=== PATIENT | female | born 1945 | race Caucasian/White ===

== ENCOUNTER 2017-07-05 09:45 | Outpatient (CLI) | payer MEDICARE, OTHER | END 2017-07-05 09:46 | disposition home or self-care (01) | LOC: LAB.F 09:45 | PROVIDERS: ATTEND Nurse Practitioner Family | DX: Z13.6 Encounter for screening for cardiovascular disorders (principal) ==

== ENCOUNTER 2017-08-01 14:39 | Outpatient (CLI) | payer MEDICARE, OTHER ==
--- NOTE | 2017-08-02 15:03 | Mammography Report ---
DIGITAL SCREENING MAMMOGRAM: 08/01/2017 CLINICAL INDICATION: A 72-year-old with history of bilateral reduction for screening. COMPARISON: 08/2014, 07/2012, 09/2010, 01/2009. TECHNIQUE: Routine CC and MLO projections were obtained of the breasts. FINDINGS: The breasts demonstrate scattered fibroglandular densities bilaterally. Postoperative changes are stable. Coarse, typically benign calcifications are present. No suspicious masses, clustered microcalcifications, or regions of architectural distortion are identified. IMPRESSION: BENIGN FINDINGS. RECOMMENDATION: Routine annual screening unless otherwise clinically indicated. BIRADS CATEGORY 2 - BENIGN FINDINGS. STANDARD QUALIFYING STATEMENTS: 1. This examination was reviewed with the aid of Computer-Aided Detection (CAD). 2. A negative or benign imaging report should not delay biopsy if clinically suspicious findings are present. Consider surgical consultation if warranted. More than 5% of cancers are not identified by imaging. 3. Dense breasts may obscure an underlying neoplasm. TD: 08/02/2017 14:37
== END 2017-08-01 14:40 | disposition home or self-care (01) ==
LOC: DI.N 14:39
PROVIDERS: ATTEND Nurse Practitioner Family
DX: Z12.31 Encounter for screening mammogram for malignant neoplasm of breast (principal)
CPT/HCPCS: 77067

== ENCOUNTER 2017-08-03 08:00 | Outpatient (CLI) | payer MEDICARE, OTHER ==
[2017-08-03 13:13] LABS: CHOL/HDL RATIO 2.6 (<4.4); CHOLESTEROL 189 mg/dL; HDL CHOLESTEROL 73 mg/dL; LDL CHOLESTEROL,CALCULATED 103 mg/dL; LDL/HDL RATIO 1.4 (<4.4); VLDL CHOLESTEROL 13 mg/dL
== END 2017-08-03 08:01 | disposition home or self-care (01) ==
LOC: LAB.N 08:00
PROVIDERS: ATTEND Nurse Practitioner Family
DX: Z13.6 Encounter for screening for cardiovascular disorders (principal); Z79.899 Other long term (current) drug therapy
CPT/HCPCS: 36415; 80061; 83721

== ENCOUNTER 2017-11-10 23:25 | Emergency (ER) | payer MEDICARE, OTHER ==
[2017-11-10 23:35] VITALS: BP 140/75
--- NOTE | 2017-11-11 00:22 | XRAY Report ---
Reason: SWELLING/PAIN R WRIST. Procedure Date: 11/11/2017 Accession Number: [id number] / [id number] Procedure: XR - Wrist 4 View RT CPT Code: FULL RESULT: EXAM: RIGHT WRIST RADIOGRAPHY EXAM DATE: 11/10/2017 11:48 PM. CLINICAL HISTORY: SWELLING/PAIN R WRIST. COMPARISON: None. TECHNIQUE: 4 views. FINDINGS: Bones: Osteopenia. Colles' fracture of the radius with dorsal angulation of the distal radial articular surface measuring 30 degrees. Ulnar styloid fracture. Joints: No dislocation seen. Joints are fairly well preserved for age. Soft Tissues: Soft tissue swelling. IMPRESSION: 1. Osteopenia with Colles' fracture of the radius showing 30 degrees dorsal angulation. 2. Ulnar styloid fracture. [facility]
[2017-11-11] MEDS ORDERED: BUPIVACAINE 0.25% PF 30 ML VIAL SUBQ STA (00:29)
[2017-11-11] MEDS ORDERED: HYDROcod/ACET 5/325 Prepack 4 PO STA (01:13)
--- NOTE | 2017-11-11 01:15 | ED Physician Documentation ---
PD HPI UPPER EXT INJURY - Stated complaint Stated Complaint: R WRIST PX - Chief complaint Chief Complaint: Ext Problem - History obtained from History obtained from: Patient - History of Present Illness Location: Right, Wrist Type of injury: Fall Where injury occurred: Home Timing - onset: Today Timing - duration: Other Timing - details: Abrupt onset Severity Comments: Moderate Improved by: Immobilization Worsened by: Moving, Palpating Associated symptoms: Swelling, Discolored Similar symptoms before: Has not had sx before Recently seen: Not recently seen Review of Systems Constitutional: denies: Fever Eyes: denies: Discharge Ears: denies: Ear pain Cardiac: denies: Chest pain / pressure GI: denies: Abdominal Pain Musculoskeletal: reports: Extremity pain, Joint pain, Extremity swelling, Joint swelling. 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 09/04/13 Hydrocodone/Acetaminophen 1 each PO Q6H PRN #14 tablet 11/11/17 [Hydrocodon-Acetaminophen 5-325] - Allergies Allergies/Adverse Reactions: Allergies Allergy/AdvReac Type Severity Reaction Status Date / Time acetaminophen [From Percocet] Allergy Nausea Verified 11/10/17 23:35 oxycodone HCl * Allergy Nausea Verified 11/10/17 23:35 [From Percocet] - Social History Does the pt smoke?: No Smoking Status: Never smoker Does the pt drink ETOH?: No Does the pt have substance abuse?: No - Immunizations Immunizations are current?: Yes - POLST Patient has POLST: No PD ED PE NORMAL - General General: Alert and oriented X 3. No: No acute distress (Patient appears uncomfortable) - HEENT HEENT: Atraumatic, PERRL, EOMI, Ears normal - Respiratory Respiratory: No respiratory distress - Extremities Extremities: No: No deformity (The patient has an obvious deformity to the right wrist with ecchymosis and swelling. The patient has a normal radial pulse and normal cap refill. The patient has normal sensation in the fingers and no pain in the elbow or shoulder. No other area of injury), No tenderness to palpate - Neuro Neuro: Alert and oriented X 3, Normal speech Results - Vitals Vitals: Vital Signs - 24 hr 11/10/17 11/10/17 23:33 23:47 Temperature 36.6 C Heart Rate 79 Respiratory 18 17 Rate Blood Pressure 140/75 H O2 Saturation 100 Oxygen O2 Source Room air - Rads (name of study) XR wrist Radiology: Final report received (1. Osteopenia with Colles' fracture of the radius showing 30 degrees dorsal angulation. 2. Ulnar styloid fracture.) Procedures - Splint (location) Upper extremity right Splint applied by: Physician Type of splint: Fiberglass, Sugar tong Other: Patient tolerated well, No complications, Neurovascular intact, Sling provided - Reduction Body part reduced: Right, Wrist Fracture or dislocation: Fracture Anesthesia: Hematoma block, Marcaine (enter cc) (5ml) Reduction aftercare: NV intact, Splint applied, Sling, Patient tolerated well, Other (The fracture was reduced after hematoma block. Finger traps were used to help fatigue the patient's muscles and for better alignment and a reduction was performed. The patient was placed in a sugar tong splint) PD MEDICAL DECISION MAKING - ED course ED course: The patient had a hematoma block and fracture reduction with splinting. Currently, the patient appears appropriate for discharge and outpatient management. I gave the name of the on-call orthopedic surgeon and advised following up on Monday. I discussed warning signs and recommended returning to the emergency department immediately for any worsening or any concerns. - Sepsis Event Vital Signs: Vital Signs - 24 hr 11/10/17 11/10/17 23:33 23:47 Temperature 36.6 C Heart Rate 79 Respiratory 18 17 Rate Blood Pressure 140/75 H O2 Saturation 100 Oxygen O2 Source Room air Departure - Departure Disposition: 01 Home, Self Care Clinical Impression: Radius distal fracture Qualifiers: Encounter type: initial encounter Fracture type: closed Fracture morphology: unspecified fracture morphology Laterality: unspecified laterality Qualified Code(s): S52.509A - Unspecified fracture of the lower end of unspecified radius , initial encounter for closed fracture Condition: Good Instructions: Distal Radius Fx, ED Fx Upper Extr Ch Follow-Up: Brian Meyer MD [Provider Admit Priv/Credential] - Within 3 Days (Call on Monday for a follow up appointment ) Prescriptions: Hydrocodone/Acetaminophen [Hydrocodon-Acetaminophen 5-325] 1 each PO Q6H PRN # 14 tablet PRN Reason: pain Comments: Please return to the ER for worsening symptoms or any concerns
== END 2017-11-11 01:34 | disposition home or self-care (01) ==
LOC: ED 23:25
DX: S52.531A Colles' fracture of right radius, initial encounter for closed fracture (principal); S52.614A Nondisplaced fracture of right ulna styloid process, initial encounter for closed fracture; W19.XXXA Unspecified fall, initial encounter; Y92.009 Unspecified place in unspecified non-institutional (private) residence as the place of occurrence of the external cause
CPT/HCPCS: 25605; 99283

== ENCOUNTER 2017-11-20 06:10 | Day surgery (SDC) | payer MEDICARE, OTHER ==
[2017-11-20] MEDS ORDERED: LACTATED RINGERS 1,000 ML IV ONE ×2 (06:38)
--- NOTE | 2017-11-20 07:12 | ANESTHESIA ---
Pre-Anesthesia VS, & Labs - Diagnosis R distal radius fx - Procedure R wrist ORIF with Brachioradialis tenotomy Vital Signs: Temp Pulse Resp BP Pulse Ox 36.4 C L 16 125/75 98 11/20/17 06:39 11/20/17 06:39 11/20/17 06:39 11/20/17 06:39 Height 5 ft 2 in Weight (kg) 67 kg Body Mass Index 27.1 - NPO Last Fluid Intake: 0515 sips with meds - Is Patient ?: No Home Medications and Allergies Home Medications: Ambulatory Orders Medication Instructions Recorded Confirmed Cetirizine HCl [Zyrtec] 10 mg PO DAILY #5 capsule 09/01/13 09/04/13 Dexamethasone [Decadron] 4 mg PO DAILY #5 tablet 09/01/13 09/04/13 Folic Acid 1 mg PO DAILY 09/01/13 09/04/13 Hydroxychloroquine [Plaquenil] 09/01/13 09/04/13 Methotrexate Sodium [Methotrexate] 5 mg PO 09/01/13 09/04/13 Mv,Ca,Min/FA/Herbal No.176 [Estro 09/01/13 09/04/13 Support Es Caplet] raNITIdine HCl [Ranitidine HCl] 150 mg PO BID #10 tablet 09/01/13 09/04/13 Pimecrolimus [Elidel] 30 gm TP BID #30 cream..g. 09/04/13 Hydrocodone/Acetaminophen 1 each PO Q6H PRN #14 tablet 11/11/17 [Hydrocodon-Acetaminophen 5-325] Allergies/Adverse Reactions: Allergies Allergy/AdvReac Type Severity Reaction Status Date / Time acetaminophen [From Percocet] Allergy Nausea Verified 11/20/17 06:45 oxycodone HCl * Allergy Nausea Verified 11/20/17 06:45 [From Percocet] Anes History & Medical History - Anesthetic History Family history of Anesthesia Complications: Denies Family history of Malignant Hyperthermia: Denies - Medical History Cardiovascular: reports: None Pulmonary: reports: None Gastrointestinal: reports: None Urinary: reports: None Neuro: reports: None Musculoskeletal: reports: Rheumatoid arthritis Skin: reports: None Smoking Status: Never smoker - Surgical History Gynecologic: Hysterectomy Exam General: Alert, Oriented x3, Cooperative Neck Mobility: Normal Mallampati classification: II Thyromental Distance: less than 4 cm Respiratory: Lungs clear, Normal breath sounds Cardiovascular: Regular rate Cognitive Status: Within normal limits Plan Anesthesia Type: General Consent for Procedure(s) Verified and Reviewed: Yes Code Status: Attempt Resuscitation ASA classification: 2-Mild systemic disease Is this case an emergency?: No
[2017-11-20 07:19] LABS: BASOPHILS # (AUTO) 0.1 10^3/uL (0.0-0.1); BASOPHILS % (AUTO) 1.3 %; EOSINOPHILS # (AUTO) 0.1 10^3/uL (0.0-0.7); EOSINOPHILS % (AUTO) 2.4 %; HGB - HEMOGLOBIN 12.7 g/dL (12.0-16.0); LYMPHOCYTES # (AUTO) 1.7 10^3/uL (1.5-3.5); LYMPHOCYTES % (AUTO) 33.5 %; MEAN CORPUSCULAR HEMOGLOBIN 34.2 pg (27.0-31.0); MEAN CORPUSCULAR HGB CONC 34.6 g/dL (32.0-36.0); MEAN CORPUSCULAR VOLUME 98.9 fL (81.0-99.0); MEAN PLATELET VOLUME 8.8 fL (7.9-10.8); MONOCYTES # (AUTO) 0.9 10^3/uL (0.0-1.0); MONOCYTES % (AUTO) 17.1 %; NEUTROPHILS # (AUTO) 2.3 10^3/uL (1.5-6.6); NEUTROPHILS % (AUTO) 45.7 %; PLT - PLATELET COUNT 239 10^3/uL (130-450); RED BLOOD COUNT 3.71 10^6/uL (4.20-5.40); RED CELL DISTRIBUTION WIDTH 13.6 % (12.0-15.0)
[2017-11-20] MEDS ORDERED: BUPIVACAINE 0.25%-EPI 1:200000 PF 30 ML VIAL ONE (07:22)
[2017-11-20] MEDS ORDERED: ceFAZolin 2 GM/50 ML 2 GM/50 ML BAG IV ONE (07:24)
[2017-11-20 07:27] LABS: CALCIUM 8.7 mg/dL (8.5-10.3); CREATININE 1.1 mg/dL (0.4-1.0)
[2017-11-20] MEDS ORDERED: fentaNYL 100 MCG/2 ML VIAL IVP ONE (07:30)
[2017-11-20] MEDS ORDERED: LIDOCAINE-MPF 2% 5 ML VIAL IM ONE (07:30)
[2017-11-20] MEDS ORDERED: PROPOFOL 200 MG/20 ML VIAL IVP ONE (07:30)
[2017-11-20] MEDS ORDERED: ONDANSETRON 4 MG/2 ML VIAL IVP ONE (07:30)
[2017-11-20] MEDS ORDERED: KETOROLAC 30 MG/ML VIAL IVP ONE (07:30)
[2017-11-20] MEDS ORDERED: DEXAMETHASONE 4 MG/ML VIAL IVP ONE (07:30)
[2017-11-20] MEDS ORDERED: MIDAZOLAM 2 MG/2 ML VIAL IVP ONE (07:30)
[2017-11-20] MEDS ORDERED: PHENYLEPHRINE 50 MG/5 ML VIAL IV ONE (07:30)
[2017-11-20] MEDS ORDERED: BUPIVACAINE 0.25%-EPI 1:200000 PF 30 ML VIAL SUBQ ONE ×2 (08:26)
[2017-11-20] MEDS: fentaNYL 100 MCG/2 ML VIAL ONE ×2 (10:00→10:05)
[2017-11-20] MEDS ORDERED: HYDROcod/ACETAM 5/325 MG TABLET ONE (10:33)
[2017-11-20 11:21] VITALS: BP 133/82
--- NOTE | 2017-11-20 13:14 | OPERATIVE REPORT ---
DATE OF SERVICE: 11/20/2017 Physician: Morgan Barrow MD SURGEON: Morgan Barrow MD. SENIOR PRODUCER: None. ANESTHESIOLOGIST: Luis Angel Greer CNA. ANESTHESIA: General anesthesia, as well as 20 mL of 0.25% Marcaine with epinephrine local. ESTIMATED BLOOD LOSS: Less than 50 mL. TOURNIQUET TIME: 92 minutes at 250 mmHg. PREOPERATIVE ANTIBIOTICS: Two grams weight-based IV Ancef. FLUIDS: 900 mL lactated Ringer's. COMPRESSION DEVICE: Bilateral calf SCD boots. PREOPERATIVE DIAGNOSES 1. Right distal radius fracture. 2. Right ulnar styloid fracture. POSTOPERATIVE DIAGNOSES 1. Right distal radius fracture. 2. Right ulnar styloid fracture. PROCEDURES PERFORMED 1. Right distal radius open reduction internal fixation. 2. Four views mini C-arm fluoroscopic interpretation, right wrist. 3. Right wrist brachioradialis tenotomy. 4. Splinting of right distal radius and ulnar styloid fracture. HISTORY OF PRESENT ILLNESS: The patient is a 72-year-old female found to have a displaced distal rad ius fracture. She was indicated for operative treatment. Please see previous clinic discussion for risks, benefits, alternatives, which were again highlighted with her and her son in the preoperative area. The patient verbalized understanding of above, verbalized wish to proceed with operative treat ment. Informed consent was given. INTRAOPERATIVE FINDINGS: The patient had a comminuted unstable distal radius fracture, appeared to b e short of the DRUJ and extraarticular otherwise. There was significant comminution towards the radi al styloid aspect of this. This reduced to a near anatomic position with radial positive height, rec reation of radial inclination and appropriate volar tilt. Hardware is extraarticular and intraosseou s screws. PROCEDURE: On 11/20/2017, the patient was identified in the preoperative care unit. She identified the right wrist as the operative site, which was signed by the operating surgeon. The patient receiv ed preoperative weight-based IV Ancef. She was brought to the operating room, placed supine on the o perating table, head, neck and extremities placed in anatomically comfortable and safe position towar d peripheral nerve stretch and compression. Head and neck were protected. The patient's right upper extremity had a well-padded tourniquet placed high on the right arm, taking care to avoid encumbrance of the axilla. The patient's right wrist and right upper extremity are pr e-scrubbed with chlorhexidine-type solution and then prepped and draped in the usual sterile fashion. Surgical pause identifies the right wrist as the operative site. At this point, Esmarch bandage used to exsanguinate the limb, and tourniquet is inflated. Local anesthetic is infused about the planned volar incision. At this point over the FCR, an open incision is made just proximal to the proximal wrist crease, and angled towards the crease, though not going across it. Skin incision made, and spreading dissection carried out to the FCR sheath, which is entered carefully to protect the tendon. The tendon is retr acted ulnarly along with neurovascular structures, and then the posterior aspect of the sheath was th en entered. Spreading dissection carried out. The pronator quadratus is identified. Retractors wer e placed directly on the bone radially and ulnarly, taking care to avoid over exuberant retraction of the adjacent neurovascular structures. At this point, while there is a transverse laceration in the pronator quadratus, the distal aspect wa s elevated in an L-shaped fashion off the radial styloid, and the fracture site was identified. The fracture site was cleared of periosteum and hematoma, copiously irrigated. The brachioradialis is id entified, and after the first dorsal extensor compartment is protected, the brachioradialis is elevat ed off the most radial aspect of the radius, thereby decreasing a deforming force. At this point, reduction maneuver is attempted and noted to be somewhat unstable. As such, plan for placement of the plate fixation distally and then using the plate for further reduction was planned. At this point, K-wires are used to position the plate and checked with fluoroscopic image to confirm appropriate plate position. Once this was established, two ulnar-sided screws are placed, one nonlo cking and one locking to control the ulnar column. The radial styloid screws are placed, and these w ere noted to be in acceptable position. The plate was then used to further reduction, and gain incre ased length and improved radial inclination. At this point, the proximal aspect is K-wired, and then after this is checked, ultimately, the oval h ole screw is placed in a nonlocking fashion, and then additional length is gained and then the oval h ole screw is tightened. At this point, the remaining proximal holes are filled with screws that are just bicortical to avoid over exuberant penetration of the second cortex to protect the overlying structures, and then the add itional distal screws are then placed in a unicortical fashion, taking care to avoid any penetration of the joint or dorsally. After appropriate tightening of all the hardware and acceptable position was noted on fluoroscopic im age of the hardware as well as the fracture, copious irrigation is again performed. Hemostasis achie umu. The pronator quadratus is closed over the plate with a 2-0 Vicryl, and then repeat copious irri gation is performed. Skin is then closed with 2-0 Vicryl and then interrupted 3-0 nylon suture, with out undue tension. At this point, a local anesthetic is infused. Skin is washed and dried, Xeroform dressing applied. Soft roll is applied. The patient is placed in a clamshell short arm splint. The patient tolerated the procedure well. Instrument and sponge counts were correct. The patient is transferred to the recovery room in stable condition. PLAN: Patient would be on perioperative antibiotics, perioperative analgesic medication. She denied any contraindications to the medications prescribed. She would use as was directed. She will be no nweightbearing right upper extremity. She is encouraged to move her elbow and digits. She would wea r a sling and elevate when at rest. The patient will followup in 10-14 days or sooner on an as-needed basis if there are problems, questi ons or worsening condition. The patient's son, Markos, was contacted in the waiting room. The case was discussed. Fluoroscopic images reviewed. His questions were answered, was in agreement and sati sfied with the plan as outlined. ADDITIONAL PROCEDURE: Four views right wrist mini C-arm fluoroscopic image interpretation. RADIOGRAPHIC INDICATIONS: Evaluate fracture reduction and hardware position of distal radius fractur e with ulnar styloid fracture. Radiographic findings demonstrated distal radius and ulnar styloid fr actures. Initial images show displacement of the fracture, which is nearly anatomically reduced with slight radial positive height, recreation of radial inclination and volar tilt. There is a near emma tomic position of the radius, despite comminution and appropriate hardware position with plate and sc rews, extraarticular and intraosseous. RADIOGRAPHIC FINDINGS: Right distal radius fracture with near anatomic fracture reduction and hardwa re position as above. TD: 11/20/2017 10:25
== END 2017-11-20 06:11 | disposition home or self-care (01) ==
LOC: SDS 06:10
PROVIDERS: ATTEND Orthopaedic Surgery Sports Medicine
PROC: 0PSK04Z Reposition Right Ulna with Internal Fixation Device, Open Approach (ICD-10-PCS; 2017-11-20)
PROC: 0PSH04Z Reposition Right Radius with Internal Fixation Device, Open Approach (ICD-10-PCS; principal; 2017-11-20 07:30)
DX: S52.531A Colles' fracture of right radius, initial encounter for closed fracture (principal); S52.611A Displaced fracture of right ulna styloid process, initial encounter for closed fracture
CPT/HCPCS: 25609; 25652; 36415; 80048; 85025; 93005; A9270; C1713; J0690; J7120

== ENCOUNTER 2018-04-04 08:38 | Outpatient (CLI) | payer MEDICARE, OTHER ==
--- NOTE | 2018-04-04 15:23 | MRI Report ---
Reason: DE QUERVAINS TENOSYNOVITIS,LEFT WRIST Procedure Date: 04/04/2018 Accession Number: [id number] / [id number] Procedure: MRI - Wrist LT W/O CPT Code: FULL RESULT: EXAM: LEFT WRIST MRI WITHOUT CONTRAST EXAM DATE: 04/04/2018 09:27 AM. CLINICAL HISTORY: DEQUERVAIN'S TENOSYNOVITIS, LEFT WRIST. COMPARISON: None. TECHNIQUE: Multiplanar, multisequence T1-weighted and fluid-sensitive sequences of the wrist without contrast. Other: None. FINDINGS: Bones: Small cystic structure is seen in the distal scaphoid. Also noted is a small amount of subjacent edematous change in the proximal hamate, lunate and triquetral bones. Cartilage: The articular cartilage is unremarkable. The triangular fibrocartilage complex is unremarkable. Ligaments: The scapholunate and lunotriquetral ligaments are intact. The visualized other intrinsic, extrinsic and collateral ligaments are unremarkable. Tendons: In the first extensor compartment, the abductor pollicis longus and extensor pollicis brevis tendons are abnormally enlarged, with increased T2 signal and fluid in the tendon sheath. Series 501 image 15. This corresponds to an area where an MRI marker has been placed. Other extensor mechanisms appear unremarkable. There is also a small amount of synovial fluid without synovial thickening or tendon thickening at the second and third extensor compartments. Fourth, fifth, and sixth extensor compartments appear normal. Musculature: No edema or fatty atrophy. Other: Carpal tunnel flexor retinaculum is thickened and bowed anteriorly. Median nerve is also swollen and show some slight increased T2 signal. Mild synovial thickening also seen in the carpal tunnel. No ganglion cysts. No joint effusions. The subcutaneous tissues are unremarkable. IMPRESSION: 1. Small cystic structure seen in the distal scaphoid, probably a benign cyst. Small amount of edematous change in the proximal hamate, lunate and triquetral bones. No fractures. 2. DeQuervain tenosynovitis with tendinitis of the abductor pollicis longus and extensor pollicis brevis tendons. 3. Carpal tunnel flexor retinaculum is thickened and bowed anteriorly, there is also some thickening of the median nerve with slight increased T2 signal. Synovial prominence also seen. These features are commonly seen in patients with carpal tunnel symptoms. [facility] MUSCULOSKELETAL RADIOLOGY SECTION
== END 2018-04-04 08:39 | disposition home or self-care (01) ==
LOC: DI 08:38
PROVIDERS: ATTEND Orthopaedic Surgery Sports Medicine
DX: M65.4 Radial styloid tenosynovitis [de Quervain] (principal); M85.89 Other specified disorders of bone density and structure, multiple sites; R22.32 Localized swelling, mass and lump, left upper limb
CPT/HCPCS: 77080

== ENCOUNTER 2018-04-04 08:43 | Outpatient (CLI) | payer MEDICARE, OTHER ==
--- NOTE | 2018-04-05 09:15 | DEXA Report ---
Reason: OSTEOPOROSIS Procedure Date: 04/04/2018 Accession Number: [id number] / [id number] Procedure: DEX - Dexa Spine and/or Hip CPT Code: FULL RESULT: EXAM: Dexa Spine and/or Hip DATE: 04/04/2018 10:00 AM CLINICAL HISTORY: OSTEOPOROSIS TECHNIQUE: Dual energy x-ray absorptiometry (DXA) was performed on a Quick TV System. Regions measured are the AP Spine, femoral neck, and if needed forearm. COMPARISON: None. In accordance with the International Society for Clinical Densitometry (ISCD) guidelines, data from previous exams may be reanalyzed using current recommendations and techniques. This is done to allow a more accurate basis for comparison with the current study. FINDINGS: The data for the lumbar spine is as follows: BMD (g/cm/cm) T-SCORE Z-SCORE REGION L1 0.770 -3.0 -1.3 L2 0.800 -3.3 -1.7 L3 1.068 -1.1 0.6 L4 1.041 -1.3 0.3 TOTAL 0.933 -2.1 -0.4 NOTE: All evaluable vertebrae are used for classification The data for the hip is as follows: BMD (g/cm/cm) T-SCORE Z-SCORE REGION Neck 0.885 -1.1 0.8 TOTAL 0.927 -0.6 1.0 NOTE: The femoral neck or total proximal femur, whichever is lowest, is used for classification. IMPRESSION: THE WHO CLASSIFICATION BASED ON THE INTERNATIONAL REFERENCE STANDARD IS OSTEOPENIA. THE FRACTURE RISK IS INCREASED. RECOMMENDATION: Patients with diagnosis of osteoporosis or osteopenia should have regular bone mineral density assessment. For those eligible for Medicare, routine testing is allowed once every 2 years. Testing frequency can be increased for patients who have rapidly progressing disease or for those who are receiving medical therapy to restore bone mass. COMMENT: World Health Organization (WHO) definitions for osteoporosis and osteopenia: NORMAL BMD: T-score at -1.0 or higher, fracture risk is low OSTEOPENIA BMD: T-score between -1.0 and -2.5, fracture risk is increased. OSTEOPOROSIS BMD: T-score at -2.5 or lower, fracture risk is high. National Osteoporosis Foundation recommends: 1. Obtain adequate dietary calcium (at least 1200 mg per day) and vitamin D (400-800 international units per day). 2. Participate, as appropriate, in regular weightbearing and muscle-strengthening exercise. 3. Avoid tobacco use and reduce alcohol and caffeine intake. 4. For more detailed information see the website at www.NOF.org.
== END 2018-04-04 08:44 | disposition home or self-care (01) ==
LOC: DI 08:43
PROVIDERS: ATTEND Internal Medicine Endocrinology, Diabetes & Metabolism
DX: M85.89 Other specified disorders of bone density and structure, multiple sites (principal)
CPT/HCPCS: 77080

== ENCOUNTER 2018-04-09 09:13 | Outpatient (CLI) | payer MEDICARE, OTHER ==
[2018-04-09 10:20] LABS: THYROID STIMULATING HORMONE 2.24 uIU/mL (0.34-5.60)
[2018-04-09 10:22] LABS: FREE T4 (FREE THYROXINE) 0.87 ng/dL (0.58-1.64)
[2018-04-09 10:27] LABS: TOTAL T3 1.03 ng/mL (0.87-1.78)
== END 2018-04-09 09:14 | disposition home or self-care (01) ==
LOC: LAB 09:13
PROVIDERS: ATTEND Internal Medicine Endocrinology, Diabetes & Metabolism
DX: E04.1 Nontoxic single thyroid nodule (principal)
CPT/HCPCS: 36415; 81599; 82308; 84439; 84443; 84480

== ENCOUNTER 2018-11-13 16:56 | Outpatient (CLI) | payer MEDICARE, OTHER ==
--- NOTE | 2018-11-14 18:49 | XRAY Report ---
Reason: L FOOT PAIN Procedure Date: 11/13/2018 Accession Number: [id number] / [id number] Procedure: XR - Foot 3 View LT CPT Code: FULL RESULT: EXAM: LEFT FOOT RADIOGRAPHY. EXAM DATE: 11/13/2018 05:17 PM. CLINICAL HISTORY: Left foot pain, twisting injury on 11/04/2018. COMPARISON: None. TECHNIQUE: 3 views. FINDINGS: Bones: Subacute appearing mildly to moderately displaced and comminuted fractures of the base of the 5th metatarsal. Probable slight amount of bony resorption at the fracture site, consistent with subacute nature of the fracture. No other fracture seen. Joints: Normal. No subluxations. Soft Tissues: Normal. No soft tissue swelling. IMPRESSION: Subacute appearing mildly to moderately displaced and comminuted fractures of the base of the fifth metatarsal. [facility]
== END 2018-11-13 16:57 | disposition home or self-care (01) ==
LOC: DI 16:56
PROVIDERS: ATTEND Physician Assistant
DX: S92.352A Displaced fracture of fifth metatarsal bone, left foot, initial encounter for closed fracture (principal)

== ENCOUNTER 2019-05-03 18:20 | Outpatient (CLI) | payer MEDICARE, OTHER | END 2019-05-03 23:59 | disposition critical access hospital (66) | LOC: EMS 18:20 | PROVIDERS: ATTEND Surgery | DX: R51 Headache (principal); R11.10 Vomiting, unspecified | CPT/HCPCS: A0425; A0429 ==

== ENCOUNTER 2019-05-03 18:53 | Emergency (ER) | payer MEDICARE, OTHER ==
[2019-05-03] MEDS ORDERED: MORPHINE 2 MG/ML CARPUJECT IVP STA ×2 (20:17→21:55)
[2019-05-03] MEDS ORDERED: ONDANSETRON 4 MG/2 ML VIAL IVP STA (20:17)
[2019-05-03] MEDS ORDERED: SODIUM CHLORIDE 0.9% 1,000 ML IV STA (20:17)
--- NOTE | 2019-05-03 20:19 | ED Physician Documentation ---
PD HPI HEADACHE - Stated complaint Stated Complaint: MIGRAINE/VOMITING - Chief complaint Chief Complaint: Neuro - History obtained from History obtained from: Patient - History of Present Illness Timing - onset: Today Timing - onset during: Rest Timing - duration: Hours Timing - details: Gradual onset, Constant, Waxing and waning Pain level now: 6 Worst headache ever?: No: Worst headache ever? Location: Global Quality: Throbbing, Aching Associated symptoms: Nausea, Vomiting. No: Fever, Stiff neck, Weakness, Numbness, Eye pain, Vision changes Improved by: Rest, Dark room, Quiet Worsened by: Light, Noise, Moving Contributing factors: No: Anticoagulated, Possible carbon monoxide, Recent illness, Trauma Similar symptoms before: Has not had sx before Recently seen: Not recently seen Review of Systems Constitutional: reports: Reviewed and negative Eyes: reports: Photophobia. denies: Loss of vision, Decreased vision Ears: denies: Ear pain Nose: denies: Congestion, Sinus pressure / pain Throat: denies: Sore throat Cardiac: reports: Reviewed and negative Respiratory: reports: Reviewed and negative GI: reports: Nausea, Vomiting. denies: Abdominal Pain Skin: denies: Rash Neurologic: reports: Headache. 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 - Present Medications Home Medications: Ambulatory Orders Medication Instructions Recorded Confirmed Cetirizine HCl [Zyrtec] 10 mg PO DAILY #5 capsule 09/01/13 11/20/17 Folic Acid 1 mg PO DAILY 09/01/13 11/20/17 Hydroxychloroquine [Plaquenil] 200 mg PO DAILY 09/01/13 11/20/17 Methotrexate Sodium [Methotrexate] 5 mg PO ONCE 09/01/13 11/20/17 Hydrocodone/Acetaminophen 1 each PO Q6H PRN #14 tablet 11/11/17 11/20/17 [Hydrocodon-Acetaminophen 5-325] Ondansetron Odt [Zofran] 4 mg TL Q6H PRN #14 tablet 05/03/19 traMADol [Ultram] 50 - 100 mg PO Q6H PRN #20 tablet 02/28/20 - Allergies Allergies/Adverse Reactions: Allergies Allergy/AdvReac Type Severity Reaction Status Date / Time acetaminophen [From Percocet] Allergy Nausea Verified 05/03/19 19:05 oxycodone HCl * Allergy Nausea Verified 05/03/19 19:05 [From Percocet] adhesive tape AdvReac Rash Verified 05/03/19 19:05 - Social History Does the pt smoke?: No Smoking Status: Never smoker Does the pt drink ETOH?: No Does the pt have substance abuse?: No - Immunizations Immunizations are current?: Yes - POLST Patient has POLST: No PD ED PE NORMAL - Vitals Vital signs reviewed: Yes - General General: Alert and oriented X 3, No acute distress, Well developed/nourished - HEENT HEENT: PERRL, EOMI - Neck Neck: Supple, no meningeal sign - Cardiac Cardiac: RRR, No murmur - Respiratory Respiratory: No respiratory distress, Clear bilaterally - Derm Derm: No rash - Neuro Neuro: Alert and oriented X 3, 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, No motor deficit, No sensory deficit, Normal speech Eye Opening: Spontaneous Motor: Obeys Commands Verbal: Oriented GCS Score: 15 Results - Vitals Vitals: Oxygen O2 Source Room air - Labs Labs: Laboratory Tests 05/03/19 05/03/19 20:43 20:43 WBC 7.3 RBC 4.25 Hgb 14.0 Hct 41.4 MCV 97.4 MCH 32.9 H MCHC 33.8 RDW 13.1 Plt Count 210 MPV 12.3 H Neut # (Auto) 6.4 Lymph # (Auto) 0.7 L Barnes # (Auto) 0.2 Eos # (Auto) 0.0 Baso # (Auto) 0.0 Absolute Nucleated RBC 0.00 Nucleated RBC % 0.0 Sodium 141 Potassium 3.7 Chloride 105 Carbon Dioxide 26 Anion Gap 10.0 BUN 21 H Creatinine 1.2 H Estimated GFR (MDRD) 44 L Glucose 136 H Calcium 9.1 - Rads (name of study) CT Radiology: Prelim report reviewed, See rad report PD MEDICAL DECISION MAKING - ED course Complexity details: reviewed results, re-evaluated patient, considered differential, d/w patient ED course: patient reported resolution of symptoms after iv fluids, morphine, and zofran Departure - Departure Disposition: 01 Home, Self Care Clinical Impression: Headache Condition: Good Instructions: ED Cephalgia Unspecified Prescriptions: Ondansetron Odt [Zofran] 4 mg TL Q6H PRN #14 tablet PRN Reason: Nausea / Vomiting traMADol [Ultram] 50 - 100 mg PO Q6H PRN #20 tablet PRN Reason: Headache Discharge Date/Time: 05/03/19 23:39
[2019-05-03 20:49] LABS: BASOPHILS % (AUTO) 0.5 %; LYMPHOCYTES # (AUTO) 0.7 10^3/uL (1.5-3.5); LYMPHOCYTES % (AUTO) 9.4 %; MEAN CORPUSCULAR HEMOGLOBIN 32.9 pg (27.0-31.0); MEAN CORPUSCULAR HGB CONC 33.8 g/dL (32.0-36.0); MEAN CORPUSCULAR VOLUME 97.4 fL (81.0-99.0); MEAN PLATELET VOLUME 12.3 fL (7.9-10.8); MONOCYTES # (AUTO) 0.2 10^3/uL (0.0-1.0); MONOCYTES % (AUTO) 3.1 %; NEUTROPHILS # (AUTO) 6.4 10^3/uL (1.5-6.6); NEUTROPHILS % (AUTO) 86.6 %; PLT - PLATELET COUNT 210 10^3/uL (130-450); RED BLOOD COUNT 4.25 10^6/uL (4.20-5.40); RED CELL DISTRIBUTION WIDTH 13.1 % (12.0-15.0); WHITE BLOOD COUNT 7.3 x10^3/uL (4.8-10.8)
[2019-05-03 21:01] LABS: CALCIUM 9.1 mg/dL (8.5-10.3); CREATININE 1.2 mg/dL (0.4-1.0)
--- NOTE | 2019-05-03 21:07 | CT Report ---
Reason: headache Procedure Date: 05/03/2019 Accession Number: [id number] / [id number] Procedure: CT - HEAD WO CPT Code: Final Report FULL RESULT: EXAM: CT HEAD EXAM DATE: 05/03/2019 08:40 PM. CLINICAL HISTORY: Headache. COMPARISON: None. TECHNIQUE: Multiaxial CT images were obtained from the foramen magnum to the vertex. Reformats: Sagittal and coronal. IV contrast: None. In accordance with CT protocol optimization, one or more of the following dose reduction techniques were utilized for this exam: automated exposure control, adjustment of mA and/or KV based on patient size, or use of iterative reconstructive technique. FINDINGS: Parenchyma: No intraparenchymal hemorrhage. No evidence of mass, midline shift, or CT findings of infarction. Benz-white differentiation is distinct. Extraaxial Spaces: Normal for age. No subdural or epidural collections identified. Ventricles: Normal in size and position. Sinuses and Orbits: There is right maxillary and left ethmoid sinus mucosal thickening. Bones: No evidence of fracture or calvarial defect. Other: None. IMPRESSION: Negative for an acute or focal intracranial abnormality. [facility]
[2019-05-03] MEDS ORDERED: traMADol 50 MG TABLET PO STA (23:29)
[2019-05-03] MEDS ORDERED: ONDANSETRON ODT 4 MG Prepack 2 TL STA (23:30)
[2019-05-03 23:39] VITALS: BP 136/91
== END 2019-05-03 23:39 | disposition home or self-care (01) ==
LOC: EDUNIT# → ED 18:53
DX: R51 Headache (principal)
CPT/HCPCS: 36415; 70450; 80048; 85025; 96361; 96374; 96375; 96376; 99284; A9270